=== PATIENT | female | born 1955 | race Caucasian/White ===

== ENCOUNTER 2020-12-27 21:53 | Observation (INO) ==
[2020-12-27] MEDS ORDERED: Aspirin 81 MG TAB.CHEW PO ONE (21:56)
[2020-12-27] MEDS ORDERED: Nitroglycerin 0.4 MG TAB.SUBL SL ONE (22:18)
[2020-12-27 22:21] LABS: Basophils # 0.1 K/mcL (0.0-0.2); Basophils % 0.4 %; Eosinophils # 0.1 K/mcL (0.0-0.6); Hematocrit 41.6 % (35.3-44.9); Hemoglobin 13.3 g/dL (11.5-15.4); Immature Granulocytes % 0.3 % (0-4); Lymphocytes % 16.6 %; Mean Corpuscular Hemoglobin 28.9 pg (28.0-33.3); Mean Corpuscular Volume 90.4 fL (83.0-100.0); Mean Platelet Volume 9.1 fL (9.4-12.4); Monocytes # 0.7 K/mcL (0.0-1.3); Monocytes % 5.6 %; Neutrophils # 9.3 K/mcL (1.6-8.9); Platelet Count 345 K/mcL (140-400); Red Cell Distribution Width 14.3 % (11.5-14.5); Segmented Neutrophils % 76.1 %; White Blood Count 12.3 K/mcL (4.3-11.1)
[2020-12-27 22:30] LABS: Prothrombin Time 11.3 Seconds (9.4-12.1)
[2020-12-27 22:33] LABS: Activated Partial Thrombo Time 28.3 Seconds (26.0-36.0)
[2020-12-27 22:45] LABS: BUN/Creatinine Ratio 15 (6-26); Blood Urea Nitrogen 10 mg/dL (8-23); Calcium 9.6 mg/dL (8.6-10.3); Carbon Dioxide 28 mEq/L (23-29); Chloride 102 mEq/L (98-107); Glucose 149 mg/dL (70-105); Osmolality,Calculated 294 (280-300); Potassium 3.5 mEq/L (3.5-5.1); Sodium 141 mEq/L (136-145); eGFR For African Americans > 60 (> 60); eGFR For Non-African Americans > 60 (> 60)
[2020-12-27 22:52] LABS: Troponin I 0.05 ng/mL (< 0.04)
[2020-12-28] MEDS ORDERED: Ondansetron 4 MG/2 ML VIAL IVP PRN (00:14)
[2020-12-28] MEDS ORDERED: Naloxone 0.4 MG/ML INJ IVP PRN (00:14)
[2020-12-28] MEDS ORDERED: Acetaminophen 325 MG TABLET PO PRN (00:14)
[2020-12-28] MEDS ORDERED: Nitroglycerin 0.4 MG TAB.SUBL SL PRN ×2 (00:17→14:49)
[2020-12-28] MEDS ORDERED: Melatonin 3 MG TABLET PO ONE (01:10)
[2020-12-28] MEDS ORDERED: Pantoprazole 40 MG VIAL IVP ONE (01:10)
[2020-12-28 04:27] LABS: Hemoglobin 12.5 g/dL (11.5-15.4)
[2020-12-28 04:29] LABS: Hematocrit 40.1 % (35.3-44.9); Immature Platelets 2.3 % (1.1-6.1); Mean Corpuscular HGB Conc 31.2 g/dL (31.6-35.5); Mean Corpuscular Hemoglobin 29.3 pg (28.0-33.3); Mean Corpuscular Volume 93.9 fL (83.0-100.0); Mean Platelet Volume 9.4 fL (9.4-12.4); Red Blood Count 4.27 M/mcL (3.82-4.97); Red Cell Distribution Width 14.3 % (11.5-14.5); White Blood Count 10.4 K/mcL (4.3-11.1)
[2020-12-28 04:48] LABS: BUN/Creatinine Ratio 26 (6-26); Blood Urea Nitrogen 15 mg/dL (8-23); Carbon Dioxide 24 mEq/L (23-29); Chloride 106 mEq/L (98-107); Chol/HDL Ratio 2.9 (0-4.9); Cholesterol 121 mg/dL (< 200); Glucose 123 mg/dL (70-105); HDL Cholesterol 42 mg/dL (40-59); LDL Cholesterol,Calculated 37 mg/dL (< 100); Osmolality,Calculated 292 (280-300); Potassium 3.9 mEq/L (3.5-5.1); Sodium 140 mEq/L (136-145); Triglycerides 208 mg/dL (< 150); eGFR For African Americans > 60 (> 60); eGFR For Non-African Americans > 60 (> 60)
[2020-12-28 05:43] LABS: Troponin I 0.04 ng/mL (< 0.04)
[2020-12-28] MEDS ORDERED: Perflutren Lipid Microsphere 1.3 ML in 0.9 % Sodium Chloride 8.7 ML IVP PRN (09:47)
[2020-12-28] MEDS ORDERED: Furosemide 40 MG TABLET PO PRN (14:49)
[2020-12-28] MEDS ORDERED: DICLOFENAC SODIUM OP SCH (15:00)
[2020-12-28] MEDS ORDERED: Famotidine 20 MG TABLET PO SCH (18:00)
[2020-12-28] MEDS: Budesonide/Formoterol 80/4.5 1 PUFF INH IH SCH (19:22)
[2020-12-28] MEDS: Ciprofloxacin HCL Soln 5 ML BOTTLE RIGHT EYE SCH (20:07)
[2020-12-28] MEDS ORDERED: Melatonin 3 MG TABLET PO SCH (21:00)
[2020-12-29] MEDS ORDERED: Regadenoson 0.4 MG/5 ML SYRINGE IVP ONE (06:22)
[2020-12-29 06:45] LABS: Basophils % 0.5 %; Eosinophils # 0.2 K/mcL (0.0-0.6); Eosinophils % 2.3 %; Hematocrit 42.3 % (35.3-44.9); Hemoglobin 13.1 g/dL (11.5-15.4); Immature Granulocytes % 0.2 % (0-4); Lymphocytes # 2.9 K/mcL (0.6-4.6); Lymphocytes % 35.7 %; Mean Corpuscular Hemoglobin 28.9 pg (28.0-33.3); Mean Corpuscular Volume 93.2 fL (83.0-100.0); Mean Platelet Volume 9.4 fL (9.4-12.4); Monocytes # 0.5 K/mcL (0.0-1.3); Monocytes % 6.7 %; Neutrophils # 4.4 K/mcL (1.6-8.9); Platelet Count 322 K/mcL (140-400); Red Blood Count 4.54 M/mcL (3.82-4.97); Red Cell Distribution Width 14.3 % (11.5-14.5); Segmented Neutrophils % 54.6 %; White Blood Count 8.1 K/mcL (4.3-11.1)
[2020-12-29] MEDS ORDERED: Tiotropium 10 INH DOSE IH ONE (07:34)
[2020-12-29 07:55] LABS: BUN/Creatinine Ratio 17 (6-26); Blood Urea Nitrogen 10 mg/dL (8-23); Calcium 9.4 mg/dL (8.6-10.3); Carbon Dioxide 28 mEq/L (23-29); Chloride 104 mEq/L (98-107); Glucose 107 mg/dL (70-105); Osmolality,Calculated 290 (280-300); Potassium 4.1 mEq/L (3.5-5.1); Sodium 140 mEq/L (136-145); eGFR For African Americans > 60 (> 60); eGFR For Non-African Americans > 60 (> 60)
[2020-12-29] MEDS: Ciprofloxacin HCL Soln 5 ML BOTTLE RIGHT EYE SCH (08:58)
[2020-12-29] MEDS ORDERED: Loratadine 10 MG TABLET PO SCH (09:00)
[2020-12-29] MEDS ORDERED: Cholecalciferol (D-3) 1,000 UNIT (25MCG) TABLET PO SCH (09:00)
[2020-12-29] MEDS ORDERED: Aspirin 81 MG TAB.CHEW PO SCH (09:00)
[2020-12-29] MEDS ORDERED: Tiotropium 10 INH DOSE IH SCH (10:00)
[2020-12-29] MEDS: Budesonide/Formoterol 80/4.5 1 PUFF INH IH SCH (10:29)
[2020-12-29 11:18] VITALS: BP 134/77; PULSE 66; TEMP 97.8; O2SAT 95
== END 2020-12-29 13:58 | disposition home or self-care (01) ==
LOC: 2ANU 21:53 → EMEROOARM 21:53 → SUATTDRO 23:38 → 2ANU 12-28 00:22
PROVIDERS: ADMIT Student in an Organized Health Care Education/Training Program; ATTEND Family Medicine